=== PATIENT | male | born 1970 | race Caucasian/White ===

== ENCOUNTER 2020-03-04 19:11 | Inpatient (IN) | payer BC ==
[~2020-03-04] VITALS: Ht 172.7 cm; Wt 90.3 kg
[2020-03-04] MEDS ORDERED: LORAZEPAM INJ 2 MG/ML VIAL ONE ×2 (19:42→20:54)
[2020-03-04] MEDS ORDERED: ONDANSETRON HCL/PF 4 MG/2 ML VIAL ONE (19:42)
[2020-03-04 19:48] LABS: BASOPHILS # (AUTO) 0.1 /CMM (0.0-0.2); BASOPHILS % (AUTO) 0.9 % (0.0-2.0); EOSINOPHILS % (AUTO) 0.8 % (0.0-6.0); HEMATOCRIT 47 % (39-51); HEMOGLOBIN 15.9 g/dL (13.5-17.5); LYMPHOCYTES # (AUTO) 2.1 /CMM (0.8-4.8); LYMPHOCYTES % (AUTO) 13.6 % (20.0-44.0); MEAN CORPUSCULAR HGB CONC 34 g/dl (31.0-36.0); MEAN CORPUSCULAR VOLUME 87 fL (80-96); MONOCYTES # (AUTO) 1.6 /CMM (0.1-1.30); MONOCYTES % (AUTO) 10.8 % (2.0-12.0); NEUTROPHILS # (AUTO) 11.1 /CMM (1.8-8.9); NEUTROPHILS % (AUTO) 73.9 % (43.0-81.0); PLATELET COUNT (AUTO) 242 /CMM (150-450); RED BLOOD CELL COUNT(AUTO) 5.38 MIL/uL (4.5-6.0); WHITE BLOOD COUNT (AUTO) 15.1 K/uL (4.3-11.0)
[2020-03-04 19:53] LABS: CALCIUM, SERUM 9.2 mg/dL (8.5-10.1); CARBON DIOXIDE 18 mmol/L (21-32); CHLORIDE 100 mmol/L (98-107); CREATININE 1.6 mg/dL (0.6-1.3); GLUCOSE 114 mg/dL (74-106); POTASSIUM 3.4 mmol/L (3.5-5.1); SODIUM SERUM 135 mmol/L (136-145); UREA NITROGEN, BLOOD 16 mg/dL (7-18)
--- NOTE | 2020-03-04 19:54 | NUR ---
BIB SELF C/O SOB SINCE LAST NIGHT. PT AAOX4, DENIES CP, DIZZINESS, WEAKNESS AT THIS TIME. PLACED ON ROLL CAPPER, ST. PT SEEN & EVAL'D BY DR. MARQUES. MEDICATED ORDERED, PT RACHELLE WELL. WILL CONT TO MONITOR.
[2020-03-04] MEDS ORDERED: ONDANSETRON HCL/PF 4 MG/2 ML VIAL IV ONE (20:00)
[2020-03-04] MEDS ORDERED: IV NS 0.9% 500 ML BAG IV ONE (20:00)
[2020-03-04] MEDS ORDERED: VANCOMYCIN HCL 1 GM in IV D5W 260 ML IV ONE (20:00)
[2020-03-04] MEDS ORDERED: LORAZEPAM INJ 2 MG/ML VIAL IV ONE ×2 (20:00→21:00)
[2020-03-04] MEDS ORDERED: CEFEPIME 1 GM in IV D5W 50 ML IV ONE (20:00)
[2020-03-04] MEDS ORDERED: VANCOMYCIN 500 MG VIAL ONE (20:02)
[2020-03-04] MEDS ORDERED: CEFEPIME 1 GM VIAL ONE (20:03)
[2020-03-04 20:06] LABS: ALANINE AMINOTRANSFERASE 33 U/L (12-78); ALBUMIN 4.1 g/dL (3.4-5.0); ALKALINE PHOSPHATASE 51 U/L (46-116); ASPARTATE AMINOTRANSFERASE 62 U/L (15-37); B-TYPE NATRIURETIC PEPTIDE 705 PG/ML (0-125); BILIRUBIN,DIRECT 0.2 mg/dL (0.0-0.2); BILIRUBIN,TOTAL 0.5 mg/dL (0.2-1.0); TOTAL PROTEIN, SERUM 7.2 g/dL (6.4-8.2)
[2020-03-04] MEDS ORDERED: ACETAMINOPHEN 325 MG TABLET PO ONE (20:30)
[2020-03-04] MEDS ORDERED: ACETAMINOPHEN ES 500 MG TABLET ONE (20:32)
[2020-03-04] MEDS ORDERED: HALOPERIDOL LACTATE INJ 5 MG/ML VIAL ONE (20:54)
[2020-03-04] MEDS ORDERED: diphenhydrAMINE HCL 50 MG/ML VIAL ONE (20:54)
[2020-03-04] MEDS ORDERED: diphenhydrAMINE HCL 50 MG/ML VIAL IV ONE (21:00)
[2020-03-04] MEDS ORDERED: HALOPERIDOL LACTATE INJ 5 MG/ML VIAL IV ONE (21:00)
[2020-03-04 21:20] LABS: APPEARANCE,URINE SL CLOUDY (CLEAR); BILIRUBIN,URINE NEGATIVE (NEGATIVE); BLOOD, URINE NEGATIVE Ery/uL (NEGATIVE); COLOR,URINE YELLOW (YELLOW); KETONES,URINE NEGATIVE (NEGATIVE); LEUKOCYTE ESTERASE ,URINE NEGATIVE (NEGATIVE); NITRITE, URINE NEGATIVE (NEGATIVE); PROTEIN,URINE NEGATIVE (NEGATIVE); UGLUCOSE NEGATIVE (NEGATIVE); UROBILINOGEN,URINE 0.2 EU/dL (0.2)
--- NOTE | 2020-03-04 21:23 | NUR ---
REPORT GIVEN TO FRANSISCA GEE FOR STEFFANY.
[2020-03-04] MEDS ORDERED: Z GUARD REMEDY 2 OZ OINT TP PRN (22:00)
[2020-03-04] MEDS ORDERED: MAG HYDROX/AL HYDROX/SIMETH 30 ML UDC PO PRN (22:00)
[2020-03-04] MEDS ORDERED: ACETAMINOPHEN 325 MG TABLET PO PRN (22:00)
[2020-03-04] MEDS ORDERED: ONDANSETRON HCL/PF 4 MG/2 ML VIAL IVP PRN (22:00)
[2020-03-04] MEDS ORDERED: MAGNESIUM HYDROXIDE 30 ML UDC PO PRN (22:00)
[2020-03-04 23:26] LABS: ABG BASE EXCESS -6.3 mmol/L; ABG PCO2 28.4 mmHg (35.0-45.0); ABG PH 7.394 (7.350-7.450); ABG PO2 167.6 mmHg (75.0-100.0); AaDO2 84.9 mmHg; COHb 0.1 % (0.5-1.5); MetHb 0.7 % (0.0-1.5); O2Hb 98.2 % (94.0-97.0); SITE, ABG Right Radial; VENT MODE, BG NASAL CANNULA
--- NOTE | 2020-03-04 23:43 | NUR ---
RN notes Admitted a 50 year old male via stretcher accompanied by 2 staff and transferred safely to bed.. Noted with shallow rapid irregular breathing. O2sat 98% at 5 lpm O2 via nasal cannula tolerating well. Skin assessment done. Admitted with diagnosis of shortness of breath. Alert and oriented. Verbally able to communicate needs. No complaint of pain or discomfort. Kept clean and dry. Temperature 100.5. Cooling measures provided. Will continue to monitor
[2020-03-05] VITALS: BP 121/71
[2020-03-05] MEDS: IV NS 0.9% 1,000 ML IV PRN ×2 (02:14→18:30)
[2020-03-05 04:00] VITALS: BP 113/75
[2020-03-05] MEDS ORDERED: FEE PK DOSING 1 MIN EA MC ONE (06:35)
--- NOTE | 2020-03-05 07:29 | NUR ---
STEEL PICKLER OPENING NOTES RECEIVED PATIENT IN BED, ASLEEP. PATIENT ON OXYGEN THERAPY 5 LPM VIA NASAL CANNULA. AT THIS MOMENT BREATHING IS EVEN AND UNLABORED WITH N SOB NOTED. NO S/S OF PAIN SUCH FACIAL GRIMACING, MOANING OR GUARDING. R HAND IV ACCESS G# 20 PRESENT AND INFUSING NS AT 75 MLS/HR. LAC G #20 PRESENT AND INTACT WELL. PATIENT HAS BILATERAL SOFT WRIST RESTRAINS DUE TO AGITATION AND COMBATIVENESS. SAFETY PRECAUTIONS IN PLACE; BED IN LOW POSITION AND LOCKED, RAILS UP X2, CALL LIGHT WITHIN REACH. WILL CONTINUE TO MONITOR PATIENT.
[2020-03-05 08:05] VITALS: BP 136/86
[2020-03-05 08:34] LABS: BASOPHILS # (AUTO) 0.1 /CMM (0.0-0.2); BASOPHILS % (AUTO) 0.7 % (0.0-2.0); EOSINOPHILS % (AUTO) 1.6 % (0.0-6.0); HEMATOCRIT 45 % (39-51); LYMPHOCYTES # (AUTO) 2.3 /CMM (0.8-4.8); LYMPHOCYTES % (AUTO) 16.7 % (20.0-44.0); MEAN CORPUSCULAR HGB CONC 34 g/dl (31.0-36.0); MEAN CORPUSCULAR VOLUME 87 fL (80-96); MONOCYTES # (AUTO) 1.4 /CMM (0.1-1.30); MONOCYTES % (AUTO) 9.9 % (2.0-12.0); NEUTROPHILS # (AUTO) 9.9 /CMM (1.8-8.9); NEUTROPHILS % (AUTO) 71.1 % (43.0-81.0); PLATELET COUNT (AUTO) 192 /CMM (150-450); RED BLOOD CELL COUNT(AUTO) 5.15 MIL/uL (4.5-6.0)
[2020-03-05 08:46] LABS: CALCIUM, SERUM 8.1 mg/dL (8.5-10.1); CARBON DIOXIDE 20 mmol/L (21-32); CHLORIDE 107 mmol/L (98-107); CREATININE 1.2 mg/dL (0.6-1.3); GLUCOSE 97 mg/dL (74-106); POTASSIUM 3.3 mmol/L (3.5-5.1); SODIUM SERUM 138 mmol/L (136-145); UREA NITROGEN, BLOOD 12 mg/dL (7-18)
[2020-03-05] MEDS: CEFEPIME 2 GM in IV D5W 100 ML IV SCH ×2 (08:48→19:35)
[2020-03-05] MEDS: ENOXAPARIN SODIUM 40 MG/0.4 ML DISP.SYRIN SQ SCH (08:51)
[2020-03-05 08:57] LABS: MAGNESIUM 1.9 mg/dL (1.8-2.4); PHOSPHORUS 3.8 mg/dL (2.5-4.9)
[2020-03-05 09:03] LABS: CHOLESTEROL 115 mg/dL (<200); HDL CHOLESTEROL 49 mg/dL (40-60); LDL 62 mg/dL (0-99); THYROID STIMULATING HORMONE < 0.007 uIU/mL (0.358-3.74); TRIGLYCERIDES 47 mg/dL (30-150)
[2020-03-05] MEDS: VANCOMYCIN 1.25 GM in IV D5W 250 ML IV SCH (09:46)
[2020-03-05] MEDS ORDERED: POTASSIUM CHLORIDE 20 MEQ TAB.PRT.SR PO SCH (11:00)
[2020-03-05 12:29] VITALS: BP 128/76
[2020-03-05] MEDS ORDERED: FAMO20TA8 MT (13:14)
[2020-03-05] MEDS ORDERED: MONT10TA22 MT (13:14)
[2020-03-05] MEDS ORDERED: DULO60CA64 MT (13:14)
[2020-03-05] MEDS ORDERED: BACL20TA MT (13:14)
[2020-03-05] MEDS ORDERED: DUTA0.5C16 MT (13:14)
[2020-03-05] MEDS ORDERED: OXYC10TA49 MT (13:14)
[2020-03-05] MEDS ORDERED: TOPI200T16 MT (13:14)
[2020-03-05] MEDS ORDERED: LEVO175T2 MT (13:14)
[2020-03-05] MEDS ORDERED: HYDR4TAB57 MT (13:14)
[2020-03-05] MEDS ORDERED: DEXT30CA6 MT (13:14)
[2020-03-05 16:06] VITALS: BP 121/82
--- NOTE | 2020-03-05 18:42 | NUR ---
MANAGER LOSS PREVENTION CLOSING NOTES PATIENT SPENT ALL DAY IN BED, IN AND OUT OF SLEEP. PATIENT ON OXYGEN THERAPY 5 LPM VIA NASAL CANNULA. AT THIS MOMENT BREATHING IS EVEN AND UNLABORED WITH NO SOB NOTED. NO COMPLAIN OF PAIN DURING THE SHIFT. LAC IV ACCESS G# 20 PRESENT AND INFUSING NS AT 75 MLS/HR. R HAND G #20 PRESENT AND INTACT WELL. ALL NEEDS ATTENDED TO THROUGHOUT THE DAY. DURING THE DAY SHIFT BILATERAL WRIST RESTRAINS WERE REMOVED; PATIENT WAS COMPLIANT. SAFETY PRECAUTIONS IN PLACE; BED IN LOW POSITION AND LOCKED, RAILS UP X2, CALL LIGHT WITHIN REACH. WILL ENDORSE TO FLOOR SUPERVISOR NURSE.
--- NOTE | 2020-03-05 19:30 | NUR ---
WELL SERVICE PUMP EQUIPMENT OPERATOR OPEN NOTES PATIENT IS EATING DINNER IN BED. A/O X2-3. ON 5L NASAL CANULA, NO SOB/ ACUTE RESPIRATORY DISTRESS NOTED. APPEARS COMFORTABLE/ NO COMPLAINTS OF PAIN AT THE MOMENT. IV ON L AC #20G IS PATENT AND INTACT RUNNING NS @75MLS/HR. BED IS IN LOWEST LOCKED POSITION WITH SIDE RAILS UP X3, SEMI FOWLERS. CALL LIGHT IS WITHIN REACH. WILL CONTINUE TO MONITOR.
[2020-03-05 20:00] VITALS: BP 124/72
[2020-03-06] VITALS: BP 116/71
--- NOTE | 2020-03-06 00:11 | NUR ---
FILM PRINTER NOTES RECEIVED CALL FROM PAUL (LAB) STATING THAT PT IS COVID NEGATIVE.
--- NOTE | 2020-03-06 00:37 | NUR ---
ORE PUNCHER NOTES CHARGE NURSE RECEIVED CALL FROM NURSING HOT METAL MIXER OPERATOR REGARDING STATUS OF PATIENT. ACCORDING TO HOT METAL MIXER OPERATOR, SINCE PT IS COVID NEGATIVE, PT WILL BE TRANSFERRED TO DIFFERENT UNIT IN AM.
[2020-03-06] MEDS: VANCOMYCIN 1.25 GM in IV D5W 250 ML IV SCH ×2 (02:22→20:57)
[2020-03-06 04:00] VITALS: BP 130/74
[2020-03-06] MEDS: IV NS 0.9% 1,000 ML IV PRN (05:37)
--- NOTE | 2020-03-06 06:26 | NUR ---
CTRS CLOSE NOTES PATIENT IS LAYING IN BED. A/O X3. ON 5L NASAL CANULA, NO SOB/ ACUTE RESPIRATORY DISTRESS NOTED. APPEARS COMFORTABLE/ NO COMPLAINTS OF PAIN AT THE MOMENT. TELE MONITOR READING SR, 85. IV IN L AC #20G IS PATENT AND INTACT RUNNING NS @75MLS/HR,. ALL DUE ANTIBIOTICS GIVEN. CONDOM CATH IN PLACE 1850 ML OUTPUT. BED IS IN LOWEST LOCKED POSITION WITH SIDE RAILS UP X3, SEMI FOWLERS. CALL LIGHT IS WITHIN REACH. WILL ENDORSE TO AM NURSE.
[2020-03-06 06:44] LABS: ALBUMIN 3.1 g/dL (3.4-5.0); BILIRUBIN,TOTAL 0.7 mg/dL (0.2-1.0); CALCIUM, SERUM 7.7 mg/dL (8.5-10.1); CREATININE 1.3 mg/dL (0.6-1.3); MAGNESIUM 2.3 mg/dL (1.8-2.4); PHOSPHORUS 3.3 mg/dL (2.5-4.9); POTASSIUM 3.7 mmol/L (3.5-5.1); TOTAL PROTEIN, SERUM 6.3 g/dL (6.4-8.2)
[2020-03-06 06:59] LABS: BASOPHILS # (AUTO) 0.1 /CMM (0.0-0.2); BASOPHILS % (AUTO) 0.6 % (0.0-2.0); EOSINOPHILS % (AUTO) 2.8 % (0.0-6.0); HEMATOCRIT 46 % (39-51); HEMOGLOBIN 15.4 g/dL (13.5-17.5); LYMPHOCYTES # (AUTO) 1.9 /CMM (0.8-4.8); LYMPHOCYTES % (AUTO) 18.8 % (20.0-44.0); MEAN CORPUSCULAR HGB CONC 33 g/dl (31.0-36.0); MEAN CORPUSCULAR VOLUME 89 fL (80-96); MONOCYTES # (AUTO) 1.1 /CMM (0.1-1.30); MONOCYTES % (AUTO) 10.6 % (2.0-12.0); NEUTROPHILS # (AUTO) 6.9 /CMM (1.8-8.9); NEUTROPHILS % (AUTO) 67.2 % (43.0-81.0); PLATELET COUNT (AUTO) 199 /CMM (150-450); RED BLOOD CELL COUNT(AUTO) 5.19 MIL/uL (4.5-6.0); WHITE BLOOD COUNT (AUTO) 10.2 K/uL (4.3-11.0)
--- NOTE | 2020-03-06 07:28 | NUR ---
TELE/RN OPENING NOTES RECEIVED PATIENT IS LAYING IN BED. A/O X3. ON 5L NASAL CANULA, NO SOB/ ACUTE RESPIRATORY DISTRESS NOTED. APPEARS COMFORTABLE/ NO COMPLAINTS OF PAIN AT THIS TIME. TELE MONITOR READING SR, 80. IV IN L AC #20G IS PATENT AND INTACT RUNNING NS @75MLS/HR,. CONDOM CATH IN PLACE. BED IS IN LOWEST LOCKED POSITION WITH SIDE RAILS UP X3, SEMI FOWLERS. CALL LIGHT IS WITHIN REACH. WILL CONTINUE TO MONITOR.
[2020-03-06] MEDS: CEFEPIME 2 GM in IV D5W 100 ML IV SCH ×2 (08:57→19:45)
[2020-03-06] MEDS: ENOXAPARIN SODIUM 40 MG/0.4 ML DISP.SYRIN SQ SCH (08:59)
[2020-03-06 10:41] LABS: CREATININE, URINE 53.6 MG/DL (30.0-125.0); URINE TOTAL PROTEIN 16.7 mg/dL (0-11.9)
[2020-03-06 12:39] LABS: APPEARANCE,URINE CLEAR (CLEAR); BILIRUBIN,URINE NEGATIVE (NEGATIVE); BLOOD, URINE NEGATIVE Ery/uL (NEGATIVE); COLOR,URINE YELLOW (YELLOW); KETONES,URINE NEGATIVE (NEGATIVE); LEUKOCYTE ESTERASE ,URINE NEGATIVE (NEGATIVE); NITRITE, URINE NEGATIVE (NEGATIVE); PROTEIN,URINE NEGATIVE (NEGATIVE); UGLUCOSE NEGATIVE (NEGATIVE); UROBILINOGEN,URINE 0.2 EU/dL (0.2)
--- NOTE | 2020-03-06 12:53 | NUR ---
TELE/RN NOTES DR LAM IS AWARE FOR HOME RECONCILIATION.
--- NOTE | 2020-03-06 15:25 | NUR ---
TELE/RN NOTES PATIENT IS OUT IN THE UNIT SMASH PIECER BY GAS ENGINE OPERATOR.
--- NOTE | 2020-03-06 15:40 | NUR ---
TELE/RN NOTES PATIENT CAME BACK FROM RADIOLOGY.
[2020-03-06 16:00] VITALS: BP 125/78
[2020-03-06 16:07] LABS: EOSINOPHIL,URINE None Seen
--- NOTE | 2020-03-06 16:28 | NUR ---
TELE/RN NOTES FOLLOW UP DR. LAM TO RECONCILE HOME MEDICATION. STILL WAITING FOR RECONCILIATION.
[2020-03-06] MEDS ORDERED: NALOXONE HCL 0.4 MG/ML AMPUL IV PRN (18:00)
--- NOTE | 2020-03-06 19:11 | NUR ---
TELE/RN CLOSING NOTES PATIENT IS LAYING IN BED. ALERT AND ORIENTED X3. ON 5L NASAL CANULA, NO APPARENT RESPIRATORY DISTRESS NOTED. TELE MONITOR READING SINUS 78 BPM. PATIENT DENIES ANY PAIN AT THIS TIME. IV IN RIGHT HAND #20G AND LEFT AC #20G WITH IV FLUID OF NS 1L AT 75 ML/HR ON AND INFUSING WELL.SEEN AND EXAMINED BY MD WITH ORDERS MADE AND CARRIED OUT. ALL DUE MEDICATION WAS GIVEN. BED IS IN LOWEST LOCKED POSITION WITH SIDE RAILS UP X3. CALL LIGHT IS WITHIN REACH. WILL ENDORSED TO PMO LEAD FOR STEFFANY.
--- NOTE | 2020-03-06 19:25 | NUR ---
MS FRANSISCA OPEN NOTES PATIENT IS LAYING IN BED. A/O X3. ON 4L NASAL CANULA, NO SOB/ ACUTE RESPIRATORY DISTRESS NOTED. NO COMPLAINTS OF PAIN AT THE MOMENT. BED IS IN LOWEST LOCKED POSITION WITH SIDE RAILS UP X3, SEMI FOWLERS. CALL LIGHT IS WITHIN REACH. WILL CONTINUE TO MONITOR.
[2020-03-06 20:00] VITALS: BP 128/78
[2020-03-06 20:19] VITALS: BP 128/78
[2020-03-06] MEDS: TOPIRAMATE 100 MG TABLET PO SCH (21:05)
[2020-03-06] MEDS: oxyCODONE IR immediate release 5 MG PO PRN (21:43)
[2020-03-06] MEDS ORDERED: DUTASTERIDE (0.5 MG) 0.5 MG CAPSULE PO SCH (22:00)
[2020-03-07] MEDS: IV NS 0.9% 1,000 ML IV PRN (05:46)
--- NOTE | 2020-03-07 06:22 | NUR ---
MS RN CLOSE NOTES PATIENT IS LAYING IN BED. A/O X4. ON 4L NASAL CANULA, NO SOB/ ACUTE RESPIRATORY DISTRESS NOTED. IV IN R HAND #20G AND L AC#20G IS PATENT AND INTACT RUNNING NS@ 75MLS/HR. ALL DUE ANTIBIOTICS GIVEN. URINAL AT BEDSIDE 1500 ML OUTPUT. APPEARS COMFORTABLE/ NO COMPLAINTS OF PAIN AT THE MOMENT. BED IS IN LOWEST LOCKED POSITION WITH SIDE RAILS UP X2, SEMI FOWLERS. CALL LIGHT IS WITHIN REACH. WILL ENDORSE TO AM NURSE.
--- NOTE | 2020-03-07 07:47 | NUR ---
STAFF AUDITOR OPEN NOTES PATIENT IS ASLEEP IN BED WITH NO SIGNS OF DISTRESS ON 4L OF NASAL CANNULA. IV L AC #20 G INTACT AND PATENT AND R HAND #20G INTACT. BED IS IN LOW POSITION WITH SIDE RAILS UP X 2 FOR SAFETY. CALL LIGHT WITHIN REACH. WILL CONTINUE TO MONITOR.
[2020-03-07 08:00] VITALS: BP 120/76
[2020-03-07 08:00] LABS: CALCIUM, SERUM 7.5 mg/dL (8.5-10.1); CREATININE 0.9 mg/dL (0.6-1.3); POTASSIUM 3.3 mmol/L (3.5-5.1)
[2020-03-07] MEDS: CEFEPIME 2 GM in IV D5W 100 ML IV SCH (08:04)
[2020-03-07] MEDS: TOPIRAMATE 100 MG TABLET PO SCH (08:04)
[2020-03-07] MEDS: ENOXAPARIN SODIUM 40 MG/0.4 ML DISP.SYRIN SQ SCH (08:05)
[2020-03-07] MEDS ORDERED: LEVOTHYROXINE SODIUM 175 MCG TABLET PO SCH (09:00)
[2020-03-07] MEDS ORDERED: DULOXETINE HCL 30 MG CAPSULE.DR PO SCH (09:00)
[2020-03-07] MEDS ORDERED: BACLOFEN (10 MG) 10 MG TABLET PO SCH (09:00)
[2020-03-07] MEDS ORDERED: MONTELUKAST SODIUM (10MG) 10 MG TABLET PO SCH (09:00)
[2020-03-07] MEDS: oxyCODONE IR immediate release 5 MG PO PRN (09:12)
[2020-03-07] MEDS: POTASSIUM CHLORIDE 20 MEQ TAB.PRT.SR PO SCH ×2 (11:33→12:24)
[2020-03-07] MEDS ORDERED: LEVO750T21 PO (12:19)
[2020-03-07] MEDS ORDERED: VANCOMYCIN 1.25 GM in IV D5W 250 ML IV SCH (13:00)
[2020-03-07] MEDS ORDERED: ASPI-1152 PO (14:57)
[2020-03-07] MEDS ORDERED: PRED20TA PO (14:57)
[2020-03-07 16:00] VITALS: BP 118/76
--- NOTE | 2020-03-07 17:44 | NUR ---
RN NOTES PATIENT REFUSED PICTURES OF HIS BACK, NECK AND SACRAL AREA TO BE TAKEN FOR DISCHARGE.
--- NOTE | 2020-03-07 18:00 | NUR ---
TERRAZZO WORKER APPRENTICE NOTES PATIENT IS A/O X 4 STABLE AND IMPROVED. WITH NO SIGNS OF DISTRESS AND NO SHORTNESS OF BREATH. DISCHARGE INSTRUCTIONS AND TEACHING WAS DONE TO CONTINUE WITH MEDICATIONS, VISIT PRIMARY CARE PHYSICIAN AND GO TO THE ER IN CASE OF AN EMERGENCY. PATIENT WAS ABLE TO TEACH BACK VERBALLY. IV L AC AND R HAND WERE REMOVED. PATIENT WAS ABLE TO AMBULATE WITHOUT ANY COMPLICATIONS AND GOT PICKED UP BY FAMILY FRIEND VIA CAR.
== END 2020-03-07 18:30 | disposition home or self-care (01) | DRG 871 ==
LOC: ER 19:13 → TELE1 21:12 → MED 03-06 10:01
PROVIDERS: ADMIT Nurse Practitioner Acute Care
DX: A41.9 Sepsis, unspecified organism (principal); J18.9 Pneumonia, unspecified organism; N17.0 Acute kidney failure with tubular necrosis; J96.01 Acute respiratory failure with hypoxia; I21.A1 Myocardial infarction type 2; G92 Toxic encephalopathy; E87.2 Acidosis; E87.1 Hypo-osmolality and hyponatremia; R74.0 Nonspecific elevation of levels of transaminase and lactic acid dehydrogenase [LDH]; E87.6 Hypokalemia; J45.909 Unspecified asthma, uncomplicated; Z90.49 Acquired absence of other specified parts of digestive tract; Z98.890 Other specified postprocedural states; Z88.1 Allergy status to other antibiotic agents; G25.81 Restless legs syndrome; F32.9 Major depressive disorder, single episode, unspecified; F41.9 Anxiety disorder, unspecified; R65.20 Severe sepsis without septic shock; E89.0 Postprocedural hypothyroidism; E86.1 Hypovolemia
CPT/HCPCS: 36415; 36600; 71045-TC; 71250-TC; 80048-TC; 80053-TC; 80061-TC; 80076-TC; 80202-TC; 80305; 81000-TC; 82550-TC; 82553; 82570-TC; 82803-TC; 83605-TC; 83735-TC; 83880; 83970; 84100-TC; 84155-TC; 84300-TC; 84439-TC; 84443-TC; 84484-TC; 85025-TC; 85378-TC; 87040-TC; 87081-TC; 87086-TC; 93307-TC; A4349; G0378; J0692; J1200; J1630; J1650; J2060; J2405; J3370; J7030; J7040; J7060; U0003-CS

== ENCOUNTER 2021-07-08 14:59 | Inpatient (IN) | payer BC, OTHER ==
[~2021-07-08] VITALS: Ht 172.7 cm; Wt 84.8 kg
[~2021-07-08 14:59] MED LIST: ASPI-1420 PO; BACL20TA MT; DEXT30CA6 MT; DULO60CA64 MT; DUTA0.5C37 MT; FAMO20TA8 MT; HYDR4TAB57 PO; LEVO175T2 MT; LEVO750T21 PO; MONT10TA22 MT; OXYC10TA49 PO; PRED20TA PO; TOPI200T16 MT
--- NOTE | 2021-07-08 15:00 | NUR ---
TO ER BED 15, BIB RA 86, AGITATED INSIDE A BANK, VERSED 5 MG X 2 GIVEN, CONNECTED TO MONITOR, AWAITING MD ROPER
--- NOTE | 2021-07-08 15:19 | NUR ---
INITIATED RFA #18G S/L; PATENT AND INTACT BLOOD COLLECTED AND SENT TO LAB
[2021-07-08] MEDS ORDERED: LORAZEPAM INJ 2 MG/ML VIAL IVP ONE (15:30)
[2021-07-08] MEDS ORDERED: IV NS 0.9% 1,000 ML BAG IV ONE (15:30)
[2021-07-08] MEDS ORDERED: LORAZEPAM INJ 2 MG/ML VIAL ONE (15:32)
[2021-07-08 15:37] LABS: BASOPHILS # (AUTO) 0.2 K/uL (0.0-0.2); BASOPHILS % (AUTO) 1.3 % (0.0-2.0); EOSINOPHILS % (AUTO) 0.6 % (0.0-6.0); HEMATOCRIT 46 % (39-51); HEMOGLOBIN 15.5 g/dL (13.5-17.5); LYMPHOCYTES # (AUTO) 2.1 K/uL (0.8-4.8); LYMPHOCYTES % (AUTO) 11.4 % (20.0-44.0); MEAN CORPUSCULAR HGB CONC 34 g/dl (31.0-36.0); MEAN CORPUSCULAR VOLUME 87 fL (80-96); MONOCYTES # (AUTO) 2.2 K/uL (0.1-1.30); NEUTROPHILS # (AUTO) 13.7 K/uL (1.8-8.9); NEUTROPHILS % (AUTO) 74.7 % (43.0-81.0); PLATELET COUNT (AUTO) 250 K/uL (150-450); RED BLOOD CELL COUNT(AUTO) 5.26 MIL/uL (4.5-6.0); WHITE BLOOD COUNT (AUTO) 18.3 K/uL (4.3-11.0)
[2021-07-08 15:46] LABS: CALCIUM, SERUM 9.5 mg/dL (8.5-10.1); CARBON DIOXIDE 20 mmol/L (21-32); CHLORIDE 107 mmol/L (98-107); CREATININE 2.2 mg/dL (0.6-1.3); GLUCOSE 76 mg/dL (74-106); POTASSIUM 3.8 mmol/L (3.5-5.1); SODIUM SERUM 145 mmol/L (136-145); UREA NITROGEN, BLOOD 46 mg/dL (7-18)
[2021-07-08 15:52] LABS: ALANINE AMINOTRANSFERASE 58 U/L (12-78); ALBUMIN 4.2 g/dL (3.4-5.0); ALCOHOL, BLOOD < 3 mg/dL (0-0); ALKALINE PHOSPHATASE 68 U/L (46-116); ASPARTATE AMINOTRANSFERASE 126 U/L (15-37); BILIRUBIN,DIRECT 0.3 mg/dL (0.0-0.2); BILIRUBIN,TOTAL 1.8 mg/dL (0.2-1.0); TOTAL PROTEIN, SERUM 7.5 g/dL (6.4-8.2)
[2021-07-08 15:54] LABS: ACETAMINOPHEN < 0 ug/ml (10-30)
[2021-07-08] MEDS ORDERED: HALOPERIDOL LACTATE INJ 5 MG/ML VIAL ONE (16:28)
[2021-07-08] MEDS ORDERED: HALOPERIDOL LACTATE INJ 5 MG/ML VIAL IV ONE (16:30)
--- NOTE | 2021-07-08 16:50 | NUR ---
URINE COLLECTED AND SENT TO LAB
--- NOTE | 2021-07-08 17:01 | NUR ---
TAKEN TO CT
[2021-07-08 17:16] LABS: BILIRUBIN,URINE MODERATE (NEGATIVE); COLOR,URINE DARK YELLOW (YELLOW); LEUKOCYTE ESTERASE ,URINE NEGATIVE (NEGATIVE); NITRITE, URINE NEGATIVE (NEGATIVE); PH,URINE 5.5 (5.0-8.0); PROTEIN,URINE TRACE mg/dl (NEGATIVE); UGLUCOSE NEGATIVE (NEGATIVE); UROBILINOGEN,URINE 0.2 EU/dL (0.2)
[2021-07-08 17:21] LABS: BACTERIA,URINE RARE /HPF (None Seen); SPERM,URINE Few /HPF (None Seen); WBC,URINE 0-2 /HPF (0-3)
[2021-07-08 17:22] LABS: HYALINE CASTS, URINE Few /LPF (None Seen); MUCUS,URINE Few /LPF (None Seen)
--- NOTE | 2021-07-08 22:28 | NUR ---
DR ROY ON THE PHONE W/ DR RUDOLPH
[2021-07-08] MEDS ORDERED: ASPIRIN 300 MG/SUPP.RECT RC ONE ×2 (22:30→22:58)
--- NOTE | 2021-07-08 23:29 | NUR ---
COVID SWAB SENT TO LAB
--- NOTE | 2021-07-08 23:31 | NUR ---
tele bed 106
[2021-07-09] MEDS ORDERED: ZOLPIDEM TARTRATE 5 MG TABLET PO PRN
[2021-07-09] MEDS ORDERED: ACETAMINOPHEN 325 MG TABLET PO PRN
[2021-07-09] MEDS ORDERED: Z GUARD REMEDY 2 OZ OINT TP PRN
[2021-07-09] MEDS ORDERED: MAG HYDROX/AL HYDROX/SIMETH 30 ML UDC PO PRN
[2021-07-09] MEDS ORDERED: HYDROCODONE/APAP 5/325MG TABLET PO PRN
[2021-07-09] MEDS ORDERED: MAGNESIUM HYDROXIDE 30 ML UDC PO PRN
[2021-07-09] MEDS ORDERED: ONDANSETRON HCL/PF 4 MG/2 ML VIAL IVP PRN
--- NOTE | 2021-07-09 00:42 | NUR ---
REPORT GIVEN TO FRANSISCA NOLASCO FOR STEFFANY
--- NOTE | 2021-07-09 01:10 | NUR ---
PAINTINGS RESTORER NOTE ADMIT 51 YEAR OLD MALE TO ROOM 106 ALERT ORIENTED X4 SLEEPING EASY TO AROSE ON ROOM AIR O2:95% ADMITTING DIAGNOSIS IS ACUTE KIDNEY INJURY AND ALTERED MENTAL STATUS IV SITE IS ON LEFT HAND AND RIGHT INTACT PATENT SAFETY MEASURE IMPLEMENT BED IN LOW POSITION AND LOCKED,CALL LIGHT WITHIN REACH HEAD OF THE BED ELEVATED CONTINUE TO MONITOR.
--- NOTE | 2021-07-09 01:12 | NUR ---
PT TRANSPORTED TO UNIT ON [facility] WITH ACLS PROTOCOL. NAD NOTED DURING TRANSPORT.
[2021-07-09] MEDS: IV 1/2NS 1000 ML 1,000 ML IV PRN ×3 (01:33→23:26)
[2021-07-09 01:44] VITALS: BP 106/75
[2021-07-09 04:00] VITALS: BP 93/65
[2021-07-09 06:44] LABS: BASOPHILS # (AUTO) 0.1 K/uL (0.0-0.2); BASOPHILS % (AUTO) 0.7 % (0.0-2.0); EOSINOPHILS % (AUTO) 5.1 % (0.0-6.0); HEMATOCRIT 42 % (39-51); HEMOGLOBIN 14.4 g/dL (13.5-17.5); LYMPHOCYTES # (AUTO) 2.1 K/uL (0.8-4.8); MEAN CORPUSCULAR HGB CONC 35 g/dl (31.0-36.0); MEAN CORPUSCULAR VOLUME 88 fL (80-96); MONOCYTES % (AUTO) 10.3 % (2.0-12.0); NEUTROPHILS # (AUTO) 5.9 K/uL (1.8-8.9); NEUTROPHILS % (AUTO) 61.9 % (43.0-81.0); PLATELET COUNT (AUTO) 175 K/uL (150-450); RED BLOOD CELL COUNT(AUTO) 4.77 MIL/uL (4.5-6.0); WHITE BLOOD COUNT (AUTO) 9.5 K/uL (4.3-11.0)
[2021-07-09 07:01] LABS: ALBUMIN 3.2 g/dL (3.4-5.0); BILIRUBIN,DIRECT 0.2 mg/dL (0.0-0.2); BILIRUBIN,TOTAL 1.3 mg/dL (0.2-1.0); CALCIUM, SERUM 7.6 mg/dL (8.5-10.1); CREATININE 1.2 mg/dL (0.6-1.3); MAGNESIUM 2.4 mg/dL (1.8-2.4); POTASSIUM 3.2 mmol/L (3.5-5.1); TOTAL PROTEIN, SERUM 6.1 g/dL (6.4-8.2)
[2021-07-09 07:11] LABS: THYROID STIMULATING HORMONE 0.339 uIU/mL (0.358-3.74)
[2021-07-09] MEDS ORDERED: PANTOPRAZOLE 40 MG TABLET.DR PO SCH (07:30)
[2021-07-09 08:00] VITALS: BP 112/72
[2021-07-09] MEDS: ASPIRIN 81 MG TAB.CHEW PO SCH (08:15)
--- NOTE | 2021-07-09 09:00 | NUR ---
RN NOTE PATIENT SINCE LAST NIGHT NOT URINATED NOTIFIED AUTOCAD DRAFTSMAN THONY
[2021-07-09] MEDS ORDERED: POTASSIUM CHLORIDE 10 MEQ/50 ML PREMIXED IVPB FOR PERIPHERAL LINE IV ONE ×2 (10:00→11:00)
[2021-07-09] MEDS: POTASSIUM CHLORIDE 20 MEQ TAB.PRT.SR PO SCH ×2 (10:23→11:07)
--- NOTE | 2021-07-09 10:31 | NUR ---
RN NOTE MARKETING PRODUCTION COORDINATOR THONY ORDERED INSERT BEE PATIENT REFUSED NOTIFIED MD CONTINUE TO MONITOR.
[2021-07-09] MEDS ORDERED: IV NS 0.9% 1,000 ML IV ONE (11:00)
[2021-07-09] MEDS ORDERED: oxyCODONE IR immediate release 5 MG PO PRN (15:00)
--- NOTE | 2021-07-09 16:01 | NUR ---
RN NOTE BLADDER SCAN DONE SHOWS MORE THAN 1000CC URINE RETENTION NOTIFIED TUBULAR PRODUCTS FABRICATOR THONY SHE ORDERED BEE INSERTION DAVON REFUSED
--- NOTE | 2021-07-09 16:09 | NUR ---
RN NOTE PATIENT AMBULATE TO BATHROOM,AND URINATE ABOUT 950CC NOTIFIED INSTRUMENTATION TECHNICIAN THONY CONTINUE TO MONITOR.
[2021-07-09] MEDS: TOPIRAMATE 100 MG TABLET PO SCH (16:14)
[2021-07-09] MEDS: FAMOTIDINE (20 MG) 20 MG TABLET PO SCH (16:14)
--- NOTE | 2021-07-09 18:52 | NUR ---
RN CLOSE NOTE: PT, MALE 51Y/O DIVEHI SPEAKING, REMAIN ALERT ORIENTED X4 SLEEPING EASY TO AROSE ON ROOM AIR O2:95% IV SITE IS ON LEFT HAND AND RIGHT INTACT, ALL DUE MEDICATION GIVEN, POTASSIUM REPLACED, PATENT SAFETY MEASURE IMPLEMENT BED IN LOW POSITION AND LOCKED,CALL LIGHT WITHIN REACH HEAD OF THE BED ELEVATED ENDURES NEXT COMING SHIFT FOR CONTINUES CARE AND MONITOR.
--- NOTE | 2021-07-09 19:30 | NUR ---
MS/RN OPENING NOTE RECEIVED PATIENT RESTING IN BED. AWAKE, ALERT AND ORIENTED X 4. ABLE TO MAKE NEEDS KNOWN. DENIES PAIN AT THIS TIME. CONTINUES ON ROOM AIR WITH NO S/SX OF RESPIRATORY DISTRESS NOTED. IV ACCESS TO RIGHT FOREARM #18G AND LEFT HAND #20G BOTH INTACT AND PATENT. CONTINUES ON IVF 1/2 NS @ 125ML/HR. CONTINUES ON PRECAUTIONS FOR PENDING COVID-19 PCR TEST. CALL LIGHT WITHIN REACH. ASPIRATION, FALL AND SAFETY PRECAUTIONS MAINTAINED. WILL CONTINUE TO MONITOR.
[2021-07-09 22:00] VITALS: BP 104/71
[2021-07-09] MEDS: DUTASTERIDE (0.5 MG) 0.5 MG CAPSULE PO SCH (22:00)
--- NOTE | 2021-07-09 22:00 | NUR ---
MS/RN NOTE MEDICATION AVODART 0.5MG TAB NOT AVAILABLE IN OMNICELL. NOTIFIED NURSING SOFTWARE INTERN WHO STATES MEDICATION IS NOT AVAILABLE.
[2021-07-09] MEDS: HYDROMORPHONE HCL 2 MG TABLET PO SCH (22:56)
[2021-07-10] MEDS: IV 1/2NS 1000 ML 1,000 ML IV PRN ×3 (05:33→23:52)
--- NOTE | 2021-07-10 06:25 | NUR ---
MS/RN CLOSING NOTE PATIENT CURRENTLY SLEEPING IN BED. ALERT AND ORIENTED X 4. ABLE TO MAKE NEEDS KNOWN. DENIES PAIN AT THIS TIME. CONTINUES ON ROOM AIR WITH NO S/SX OF RESPIRATORY DISTRESS NOTED. IV ACCESS TO RIGHT FOREARM #18G AND LEFT HAND #20G BOTH INTACT AND PATENT. CONTINUES ON IVF 1/2 NS @ 125ML/HR. CONTINUES ON PRECAUTIONS FOR PENDING COVID-19 PCR TEST. CALL LIGHT WITHIN REACH. ASPIRATION, FALL AND SAFETY PRECAUTIONS MAINTAINED. WILL ENDORSE PLAN OF CARE TO ONCOMING SHIFT.
[2021-07-10 06:35] LABS: BASOPHILS # (AUTO) 0.1 K/uL (0.0-0.2); BASOPHILS % (AUTO) 0.8 % (0.0-2.0); EOSINOPHILS % (AUTO) 4.5 % (0.0-6.0); HEMATOCRIT 44 % (39-51); LYMPHOCYTES # (AUTO) 2.3 K/uL (0.8-4.8); MEAN CORPUSCULAR HGB CONC 34 g/dl (31.0-36.0); MEAN CORPUSCULAR VOLUME 88 fL (80-96); MONOCYTES # (AUTO) 0.9 K/uL (0.1-1.30); MONOCYTES % (AUTO) 11.2 % (2.0-12.0); NEUTROPHILS # (AUTO) 4.2 K/uL (1.8-8.9); NEUTROPHILS % (AUTO) 53.5 % (43.0-81.0); PLATELET COUNT (AUTO) 188 K/uL (150-450); RED BLOOD CELL COUNT(AUTO) 4.94 MIL/uL (4.5-6.0); WHITE BLOOD COUNT (AUTO) 7.8 K/uL (4.3-11.0)
[2021-07-10 07:06] LABS: CALCIUM, SERUM 6.7 mg/dL (8.5-10.1); CREATININE 1.2 mg/dL (0.6-1.3); MAGNESIUM 1.9 mg/dL (1.8-2.4); PHOSPHORUS 2.9 mg/dL (2.5-4.9); POTASSIUM 3.1 mmol/L (3.5-5.1)
[2021-07-10 08:00] VITALS: BP 94/60
[2021-07-10] MEDS: FAMOTIDINE (20 MG) 20 MG TABLET PO SCH ×2 (08:19→16:07)
[2021-07-10] MEDS: DULOXETINE HCL 30 MG CAPSULE.DR PO SCH ×2 (08:19→09:00)
[2021-07-10] MEDS: TOPIRAMATE 100 MG TABLET PO SCH ×2 (08:19→16:10)
[2021-07-10] MEDS: LEVOTHYROXINE SODIUM 175 MCG TABLET PO SCH (08:19)
[2021-07-10] MEDS: BACLOFEN (10 MG) 10 MG TABLET PO SCH (08:19)
[2021-07-10] MEDS: ASPIRIN 81 MG TAB.CHEW PO SCH (08:19)
[2021-07-10] MEDS: predniSONE 20 MG TABLET PO SCH (08:20)
[2021-07-10] MEDS: MONTELUKAST SODIUM (10MG) 10 MG TABLET PO SCH (08:20)
[2021-07-10] MEDS ORDERED: ASPIRIN EC 81 MG TABLET.DR PO SCH (09:00)
[2021-07-10] MEDS ORDERED: D AMPHET MT SCH (09:00)
[2021-07-10] MEDS ORDERED: [UNRECOGNIZED DRUG - OTHER] MT SCH (09:00)
[2021-07-10] MEDS ORDERED: AMPHET MT SCH (09:00)
[2021-07-10] MEDS ORDERED: AMPHET ASP MT SCH (09:00)
[2021-07-10] MEDS ORDERED: POTASSIUM CHLORIDE 20 MEQ TAB.PRT.SR PO ONE ×2 (10:00→11:30)
--- NOTE | 2021-07-10 14:49 | NUR ---
RN OPENING NOTE RECEIVED PATIENT RESTING IN BED. AWAKE, ALERT AND ORIENTED X 4. ABLE TO MAKE NEEDS KNOWN. DENIES PAIN AT THIS TIME. CONTINUES ON ROOM AIR WITH NO S/SX OF RESPIRATORY DISTRESS NOTED. IV ACCESS TO RIGHT FOREARM #18G AND LEFT HAND #20G BOTH INTACT AND PATENT. CONTINUES ON IVF 1/2 NS @ 125ML/HR. CALL LIGHT WITHIN REACH. ASPIRATION, FALL AND SAFETY PRECAUTIONS MAINTAINED. WILL CONTINUE TO MONITOR.
--- NOTE | 2021-07-10 15:35 | NUR ---
"SS consult : SS consult requested for homelessness. Pt. is a 51-year-old male brought in by police and paramedics per EMR. Per EMR, pt. was agitated in the bank because he could not complete a transaction and was yelling. Upon SS consult, pt. is alert and oriented x4. Pt. presents with an anxious mood and flat affect. Pt. presented with a circumstantial thought process and pressured speech. Pt. provided inappropriate eye contact throughout assessment. Pt. was cooperative throughout the interview. Pt. stated that he is seeking medical attention for chest pain. Pt. stated he has a history of heart issues and has received heart surgery. SW explored pt.s social support. Pt stated he was in contact with his mother Liliya Yeung ([phone]). Pt. stated he also has a caregiver Forrest Rojo ([phone]). Pt. stated his caregiver cooks, cleans and takes him to doctors appointments. SW explored pt.s living situation. Pt. denies homelessness. However, pt. has 2 suit cases in his room with personal items. Pt. states he lives at [address] [place] [address] with caregiver, Forrest. SW explored if pt. was ambulatory. Pt stated he was able to walk. SW explored pt.s financial situation. Pt. stated they receive General Relief. SW explored pt.s substance abuse hx. Pt. denies substance use. SW explored psychiatric history. Pt. stated he has been diagnosed with depression and anxiety for 20 years. Pt. stated he takes Vilazodone as well as a lot of other medications and cannot list them all. Pt. denied visual/auditory hallucinations. Pt. denied suicidal/homicidal ideation. Plan: Upon discharge, pt. states he would like return to [[address] [place] [address]] with caregiver. Pt. gave verbal consent to call the caregiver and confirm transportation. SW made multiple attempts to reach Forrest. However, Forrest did not answer calls or return calls. Pt. did not complete homeless waiver or receive resources since he denies homelessness. AHMET will follow up when pt. is discharged to provide mcfp placement if needed. Year-round shelters: [facility] [address] [address] ; [facility] [place] [address] [place] [address]; [place] [facility] Aynjzpx2082 [facility]. [facility] [address] Winter Shelters: Cady Mallory Mary Provider: [facility] [place] Address: [address], [address] # of Beds: 47 Population Served: [facility] 6 | [facility] Zaira Payne [place] Provider: [facility] at Last Address: [address] [place] [address], [address] # of Beds: 66 Population Served: [facility] Excello [place] Provider: First to Serve Address: [address] [facility], [address] # of Beds: 56 Population Served: [facility] [address] [place] Provider: SSNaveen/Ms. Olson'leela House Address: [address] [place] [address], [address] # of Beds: 49 Population Served: [facility] 8 | [facility] Provider: First to Serve Address: [address] [facility]. [place], [address] # of Beds: 37 Population Served: [facility] Hygiene: [facility]: [address] [facility] [facility] ; [facility] [facility] [address] [facility] ; [facility] [address] [facility] . Food Resources: [place] [facility] at [facility]- [address] [facility]; Meet Each Need with Dignity ([facility]) [address] [facility] [place]; [facility] Food Pant[facility] 7766 [facility]; [facility] 2995 [facility]. Mental Health resources provided: [facility] [address] [place] [address] ; [facility] [place] [address] [facility] [address], [place] [address] ; [facility] [address] [place] [address] ; [facility] [address] [place], [place] [address] Healthcare Clinics: [facility] [address] [facility], [address] [place]. [place] ; [facility] [address] [facility] [address] [place] [address]; [facility] [address] [facility] [place] [address] [phone]) [phone] Counseling--Outpatient [facility] [address] [facility], [place] [address] (Specializes in in-depth psychotherapy for emotional distress: anxiety, depression, interpersonal conflicts, life transitions, childhood abuse) [facility] [address] [place] [address] (Assist with solving problem marital difficulties, separation & divorce, aging parents, & grief, chronic & terminal illness) [facility] [address] [place] [address] (Deal with loss & grief, anxiety, marital difficulties) Homebound/Mental Health Services [address] [facility], [address] [place] [address] (Provide in-home mental services to people who are incapable of leaving their homes) [facility] for Needs of the Elderly Senior Service/Resource Center [address] [place] [address] [facility] [address] [place] [address] PSYCHIATRIC OUTPATIENT SERVICES [facility] Partial Hospitalization and Intensive Outpatient Program (Managed Care and [place] Only)[address] [address]. [facility] [phone] [facility] Partial Hospitalization and Outpatient [id number] [facility]. [address] [place], [place] [phone] GRUPO PERALTA [facility] [id number] [facility]. [address] [place], [place] [phone] [facility] Partial Hospitalization and Outpatient [id number] Radha Topete, [phone] Substance Abuse resources provided included: [facility] Substance Abuse Self-Helpline ([facility]) ; CRI -HELP [address] [facility]. [place] [address] ; [facility] [address] [facility] [address] ; [facility] Rehabilitation Program [address] [facility] [address] ; [place] [address] [facility] [address] ; [facility] 4940 [facility] [address] ; Shalini [facility] 909 [facility] [phone] ; [facility] Substance Abuse Helpline([facility] ; [facility] ; [facility]; [facility]; [facility] [place]; [facility] [place]; [facility] [place]; [place]; [facility] [place] [facility] [place]; [facility] [place]; Alcoholics Anonymous -SFV; Cd-Wqaf-Vkuetor ; Marijuana Anonymous -[facility]V; Narcotics Anonymous www.na.org;"
[2021-07-10 16:00] VITALS: BP 112/72
--- NOTE | 2021-07-10 18:11 | NUR ---
RE CLOSING NOTE: PT, MALE 51Y/O CHINESE SPEAKING, REMAIN ALERT ORIENTED X4 SLEEPING EASY TO AROSE ON ROOM AIR O2:95% IV SITE IS ON LEFT HAND 20 g AND RIGHT forearm 18 G INTACT, ALL DUE MEDICATION GIVEN, POTASSIUM REPLACED, PT WALKED TO THE RESTROOM AND VOIDED 5-6 TIMES. PATENT SAFETY MEASURE IMPLEMENT BED IN LOW POSITION AND LOCKED,CALL LIGHT WITHIN REACH HEAD OF THE BED ELEVATED. ENDURES NEXT COMING SHIFT FOR CONTINUES CARE AND MONITOR.
[2021-07-10 20:00] VITALS: BP 105/69
--- NOTE | 2021-07-10 20:00 | NUR ---
RN OPENING NOTE: RECEIVED PATIENT AWAKE IN BED, ALERT AND ORIENTED X4 ABLE TO VERBALIZE NEEDS, ON R/A , O2 SAT OF 96% BREATHING EVEN AND UNLABORED, NO COMPLAINS OF CHEST PAIN NOTED, NO DISTRESS, BATHROOM PRIVILEGES AMBULATORY, SKIN INTACT, ON LEFT HAND g20 AND RFA g18 INTACT AND PATENT IVF OF 1/2 NS AT 125 ML /HR ORDERED TOLERATING WELL CARBIAC DIET, ISOLATION PRECAUTION OBSERVED, SAFETY MEASURE OBSERVED, BED WHEELS LOCK, BED ALARM TRAFFIC COUNTER LIGHT WITHIN REACH, V/S STABLE AFEBRILE . DUE MEDS GIVEN ORDER NO ASE NOTED .WILL CONTINUE TO MONITOR.
[2021-07-10] MEDS: HYDROMORPHONE HCL 2 MG TABLET PO SCH (22:02)
[2021-07-10] MEDS: DUTASTERIDE (0.5 MG) 0.5 MG CAPSULE PO SCH (22:03)
[2021-07-11 04:00] VITALS: BP 111/74
[2021-07-11 06:47] LABS: BASOPHILS # (AUTO) 0.1 K/uL (0.0-0.2); BASOPHILS % (AUTO) 0.6 % (0.0-2.0); EOSINOPHILS % (AUTO) 4.5 % (0.0-6.0); HEMATOCRIT 42 % (39-51); HEMOGLOBIN 14.3 g/dL (13.5-17.5); LYMPHOCYTES # (AUTO) 2.6 K/uL (0.8-4.8); LYMPHOCYTES % (AUTO) 30.1 % (20.0-44.0); MEAN CORPUSCULAR HGB CONC 34 g/dl (31.0-36.0); MEAN CORPUSCULAR VOLUME 88 fL (80-96); MONOCYTES # (AUTO) 1.1 K/uL (0.1-1.30); NEUTROPHILS # (AUTO) 4.4 K/uL (1.8-8.9); NEUTROPHILS % (AUTO) 51.8 % (43.0-81.0); PLATELET COUNT (AUTO) 187 K/uL (150-450); RED BLOOD CELL COUNT(AUTO) 4.73 MIL/uL (4.5-6.0); WHITE BLOOD COUNT (AUTO) 8.5 K/uL (4.3-11.0)
--- NOTE | 2021-07-11 07:19 | NUR ---
RN CLOSING NOTE: PATIENT STABLE AND AWAKE IN BED. SATURATING WELL ON ON R/A. TOLERATING, NO DISTRESS, NO SOB NOTED. BED AT LOWEST POSITION, SIDE RAILS UP X2, CALL LIGHT WITHIN REACH, WILL CONTINUE TO MONITOR WILL ENDORSE TO DAY SHIFT FOR CONTINUITY OF CARE. REMAIN ON 1/2 NS AT 125ML/HR INFUSING WELL.
--- NOTE | 2021-07-11 07:24 | NUR ---
RN OPENING NOTE PATIENT RECEIVED IN BED, RESTING. PATIENT ON ROOM AIR WITH NO SIGNS OF LABORED BREATHING AT THIS TIME. LEFT HAND 20G IV AND RIGHT FOREARM 28G IV IN PLACE, PATENT WITH NO SIGNS OF INFILTRATION AND RUNNING 1/2NS AT 125CC/HR. NO SIGNS OF DISTRESS NOTED AT THIS TIME. BED LOCKED AND IN LOWEST POSITION, CALL LIGHT WITHIN REACH, 2 SIDE RAILS UP. ALL SAFETY MEASURES IMPLEMENTED. WILL CONTINUE TO MONITOR.
[2021-07-11 07:29] LABS: CALCIUM, SERUM 7.2 mg/dL (8.5-10.1); MAGNESIUM 1.9 mg/dL (1.8-2.4); PHOSPHORUS 2.7 mg/dL (2.5-4.9); POTASSIUM 3.4 mmol/L (3.5-5.1)
[2021-07-11] MEDS: predniSONE 20 MG TABLET PO SCH (08:40)
[2021-07-11] MEDS: LEVOTHYROXINE SODIUM 175 MCG TABLET PO SCH (08:40)
[2021-07-11] MEDS: FAMOTIDINE (20 MG) 20 MG TABLET PO SCH (08:40)
[2021-07-11] MEDS: ASPIRIN 81 MG TAB.CHEW PO SCH (08:40)
[2021-07-11] MEDS: MONTELUKAST SODIUM (10MG) 10 MG TABLET PO SCH (08:40)
[2021-07-11] MEDS: BACLOFEN (10 MG) 10 MG TABLET PO SCH (08:40)
[2021-07-11] MEDS: TOPIRAMATE 100 MG TABLET PO SCH (08:40)
[2021-07-11] MEDS: DULOXETINE HCL 30 MG CAPSULE.DR PO SCH ×2 (08:41→08:48)
[2021-07-11] MEDS: IV 1/2NS 1000 ML 1,000 ML IV PRN (08:51)
[2021-07-11] MEDS ORDERED: POTASSIUM CHLORIDE 20 MEQ TAB.PRT.SR PO SCH (09:30)
[2021-07-11 12:00] VITALS: BP 115/70
--- NOTE | 2021-07-11 16:00 | NUR ---
RN NOTE PATIENT DISCHARGED PER PUBLIC HEALTH ENGINEER ORDER. ALL IV LINES REMOVED. PATIENT STABLE ON ROOM AIR. PATIENT IS AMBULATORY AND WAS PICKED UP BY [facility].
== END 2021-07-11 15:50 | disposition home or self-care (01) | DRG 682 ==
LOC: ER 15:04 → TELE1 23:32 → MEDSG1 07-09 08:13
PROVIDERS: ADMIT Student in an Organized Health Care Education/Training Program; ATTEND Registered Nurse
DX: N17.0 Acute kidney failure with tubular necrosis (principal); I21.A1 Myocardial infarction type 2; M62.82 Rhabdomyolysis; I50.32 Chronic diastolic (congestive) heart failure; I13.0 Hypertensive heart and chronic kidney disease with heart failure and stage 1 through stage 4 chronic kidney disease, or unspecified chronic kidney disease; E03.9 Hypothyroidism, unspecified; E86.0 Dehydration; F32.A Depression, unspecified; J45.909 Unspecified asthma, uncomplicated; F10.10 Alcohol abuse, uncomplicated; F41.9 Anxiety disorder, unspecified; Z79.82 Long term (current) use of aspirin; D72.829 Elevated white blood cell count, unspecified; R74.01 Elevation of levels of liver transaminase levels; F19.10 Other psychoactive substance abuse, uncomplicated; R07.9 Chest pain, unspecified; I08.2 Rheumatic disorders of both aortic and tricuspid valves; N18.9 Chronic kidney disease, unspecified; Z87.01 Personal history of pneumonia (recurrent); Z79.890 Hormone replacement therapy; F15.188 Other stimulant abuse with other stimulant-induced disorder
CPT/HCPCS: 36415; 70450-TC; 71045-TC; 80048-TC; 80076-TC; 81001; 82550-TC; 82553; 83735-TC; 84100-TC; 84443-TC; 84484-TC; 85025-TC; 87081-TC; 93307-TC; G0378; G0480; J1630; J2060; J3490; J7030; U0003